=== PATIENT | male | born 1940 | race Caucasian/White ===

== ENCOUNTER 2023-05-21 07:08 | Emergency (ER) | payer MEDICARE, MEDICAID, SELFPAY ==
[2023-05-21] VITALS (26 sets, daily range): BP systolic 122–173; BP diastolic 74–91; PULSE 76–99; RESP 12–22; TEMP 36.6; O2SAT 91–98; BMI 27.1
--- NOTE | 2023-05-21 07:17 | ECG_ITS ---
The [facility] Test Date: 2023-05-21 Pat Name: CRISTA ROA Department: Room: - Gender: Male Lead Cashier: : 1940 Requested By: Order Number: [id number] Reading MD: GEORGIE GOODSON Measurements Intervals [place] Rate: 81 P: 69 MS: 226 QRS: 55 QRSD: 90 T: 66 QT: 390 QTc: 427 Interpretive Statements 1100 Sinus rhythm 1574 with frequent ventricular premature complexes 2231 First degree AV block 2420 RSR (QR) in lead V1/V2, consistent with right ventricular conduction delay 9150 abnormal ECG No previous ECG available for comparison Electronically Signed On 05-25-2023 6:57:30 EST by GEORGIE GOODSON
--- NOTE | 2023-05-21 07:33 | CT_ITS ---
The [address] [address] Patient Name: CRISTA ROA MRN: [id number] date: 1940 Sex: M Assigned Patient Location: ER Current Patient Location: ED.MAIN Accession/Order Number: [id number] Exam Date: 05/21/2023 07:55 Report Date: 05/21/2023 08:32 At the request of: MICHELE BACON Procedure: CT head/brain wo con HEAD CT WITHOUT CONTRAST: 05/21/2023 7:55 AM EDT Clinical Data: ams Comparison: No previous Unenhanced axial data from base to vertex. INTRA-AXIAL: No acute hemorrhage. No acute infarction is evident. EXTRA-AXIAL: No acute hemorrhage. No focal fluid collection. BRAIN VOLUME: Unremarkable for age. VENTRICLES: No hydrocephalus PARANASAL SINUSES: No air-fluid levels in the included aspects. MASTOIDS: Clear. CALVARIUM: No acute finding. EXTRACALVARIAL: No acute findings CT/CT head/brain wo con IMPRESSION: 1. No evidence of acute intracranial process on this unenhanced study as described. All CT scans at this facility use dose modulation, iterative reconstruction, and/or weight based dosing when appropriate to reduce radiation dose to as low as reasonably achievable. Electronically authenticated by: GREG PARADA Date: 05/21/2023 08:32
[2023-05-21 07:38] LABS: Basophils Percent Auto 0.4 % (0.2-2.0); Eosinophils Absolute Auto 0.2 10^3/uL (0.0-0.7); Eosinophils Percent Auto 2.1 % (0.9-7.0); Hematocrit 31.3 % (42.0-54.0); Hemoglobin 10.1 g/dL (14.0-18.0); Immature Granulocytes Abs Auto 0.02 10^3/uL (0.00-0.03); Immature Granulocytes Pct Auto 0.2 % (0.0-0.5); Lymphocytes Percent Auto 11.6 % (20.5-60.0); Mean Corpuscular HGB Conc 32.3 g/dL (29.9-35.2); Mean Corpuscular Hemoglobin 32.7 pg (25.9-34.0); Mean Corpuscular Volume 101.3 fL (80.0-94.0); Mean Platelet Volume 10.1 fL (9.5-13.5); Monocytes Absolute Auto 0.8 10^3/uL (0.3-0.8); Monocytes Percent Auto 9.2 % (1.7-12.0); Neutrophils Absolute Auto 6.9 10^3/uL (1.4-6.5); Neutrophils Percent Auto 76.5 % (43.0-75.0); Platelet Count 231 10^3/uL (150-450); Red Blood Count 3.09 10^6/uL (4.70-6.10); Red Cell Distribution Width 12.4 % (11.0-15.0)
[2023-05-21 07:50] LABS: Alanine Aminotransferase 37 U/L (16-63); Albumin Globulin Ratio 0.8; Albumin Level 2.8 g/dL (3.4-5.0); Alkaline Phosphatase 172 U/L (46-116); Anion Gap 15.8; Aspartate Amino Transferase 36 U/L (15-37); BUN Creatinine Ratio 27.2; Bilirubin Total 1.6 mg/dL (0.2-1.0); Calcium 8.2 mg/dL (8.5-10.1); Carbon Dioxide 22.8 mmol/L (21.0-32.0); Chloride 110 mmol/L (98-107); Estimated GFR (African America 56 (>=60); Estimated GFR (Non-African Ame 46 (>=60); Globulin 3.5 g/dL; Glucose 87 mg/dL (74-106); Potassium 4.6 mmol/L (3.5-5.1); Sodium 144 mmol/L (136-145); Total Protein 6.3 g/dL (6.4-8.2)
[2023-05-21 07:52] LABS: Troponin I High Sensitivity 26.5 pg/mL (4.0-76.1)
[2023-05-21 07:54] LABS: INR 1.83; Prothrombin Time 18.7 sec (9.0-11.6)
--- NOTE | 2023-05-21 07:54 | ED.WEAKNESS1 ---
HPI - Weakness General Chief complaint: Weakness Stated complaint: GENERAL WEAKNESS Time Seen by Provider: 05/21/23 07:15 Mode of arrival: ambulance History of Present Illness HPI Narrative: The patient is coming to us from assisted living with a complaint of generalized weakness for the last week , there was no specific abdominal pain or chest pain The patient have history of congestive heart failure as well as A-fib and CKD stage III and hypertension as well as anxiety and diabetes type 2 Upon arrival the patient have no acute complaint he does have a history of recent fracture to his right humerus mostly the proximal aspect of it And it seemed that the patient was just evaluated 2 days ago in [facility] for general weakness which seem that the work-up as well was negative the patient himself denies any complaint at the moment Related Data Allergies Allergy/AdvReac Type Severity Reaction Status Date / Time No Known Drug Allergies Allergy Verified 05/21/23 07:13 Review of Systems ROS Status of ROS 10 or more systems reviewed and unremarkable except as noted in history and below Exam Narrative Exam Narrative: Nurses notes and vital signs reviewed and patient is not hypoxic. General: Well-appearing and in no apparent distress. Skin: Warm, dry, no pallor noted. No rash. Head: Normocephalic, atraumatic. Neck: Supple, non-tender. Eye: Pupils are equal, round and EOMI. No scleral icterus. Ears, Nose, Mouth, and Throat: TM are clear, no nasal mucosal hypertrophy. Oral mucosa is very dry., no posterior oropharynx erythema, uvula is mid-line Cardiovascular: Regular Rate and Rhythm without murmur, gallop or rub. Respiratory: No accessory muscle use or respiratory distress. Lungs are clear to auscultation, no wheezing, rales or rhonchi Chest Wall: no tenderness Back: No midline thoracic or lumbar vertebral tenderness. 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 Normal bowel sounds. No masses appreciated. No tenderness to palpation. Scar of previous PEG tube Neurological: A&O x4. No cranial nerve dysfunction observed. No truncal ataxia. Moves all extremities. Sensation intact. Psychiatric: Cooperative and interactive. Normal mood and affect. Constitutional Vital Signs, click to edit/add: Last Vital Signs Temp 97.8 F 05/21/23 07:10 Pulse 80 05/21/23 10:10 Resp 13 05/21/23 10:10 BP 142/87 H 05/21/23 10:00 Pulse Ox 91 L 05/21/23 10:00 O2 Del Method Room Air 05/21/23 09:08 Course Vital Signs Vital signs: Vital Signs Temperature 97.8 F 05/21/23 07:10 Pulse Rate 80 05/21/23 07:10 Respiratory Rate 16 05/21/23 07:10 Blood Pressure 144/74 H 05/21/23 07:10 Pulse Oximetry 98 05/21/23 07:10 Oxygen Delivery Method Room Air 05/21/23 07:10 Temperature 97.8 F 05/21/23 07:10 Pulse Rate 80 05/21/23 10:10 Respiratory Rate 13 05/21/23 10:10 Blood Pressure 142/87 H 05/21/23 10:00 Pulse Oximetry 91 L 05/21/23 10:00 Oxygen Delivery Method Room Air 05/21/23 09:08 MDM - Weakness MDM Narrative Medical decision making narrative: The patient EKG showing sinus rhythm with a heart rate of [address] elevation or depression few PVCs The patient CBC and chemistry showed no acute significant pathology it was noted that the patient have a very dry oral mucosa and that could be interfering with his speech as well although he does not have any dysarthria Patient CBC chemistry showed no acute significant pathology as well as the magnesium was 2.3 patient was able to ambulate no difficulty no acute complaint and right now he was to be discharged back to his shelter facility It was noted that the patient is using the [place] as well as tramadol for his pain management and that could be the reason for the generalized weakness that he is having as a side effect of the medication as the patient said that the tramadol was not effective and would stop the tramadol and limit the patient use during the day to Tylenol and [place] and the use of [place] at night in case needed before going to sleep Keep cautious of Tylenol amount he is receiving The patient is to follow up with primary care physician in next 2-3 days or to return to the emergency department should any of the signs or symptoms worsen or new symptoms develop. The patient agrees with the following Diagnosis and Treatment plan and the patient will be discharged home. Lab Data Labs: Lab Results 05/21/23 05/21/23 Range/Units 07:26 08:12 WBC 9.0 (4.0-11.0) 10^3/uL RBC 3.09 L (4.70-6.10) 10^6/uL Hgb 10.1 L (14.0-18.0) g/dL Hct 31.3 L (42.0-54.0) % MCV 101.3 H (80.0-94.0) fL MCH 32.7 (25.9-34.0) pg MCHC 32.3 (29.9-35.2) g/dL RDW 12.4 (11.0-15.0) % Plt Count 231 (150-450) 10^3/uL MPV 10.1 (9.5-13.5) fL Neut % (Auto) 76.5 H (43.0-75.0) % Lymph % (Auto) 11.6 L (20.5-60.0) % [place] % (Auto) 9.2 (1.7-12.0) % Eos % (Auto) 2.1 (0.9-7.0) % Baso % (Auto) 0.4 (0.2-2.0) % Neut # (Auto) 6.9 H (1.4-6.5) 10^3/uL Lymph # (Auto) 1.0 L (1.2-3.8) 10^3/uL [place] # (Auto) 0.8 (0.3-0.8) 10^3/uL Eos # (Auto) 0.2 (0.0-0.7) 10^3/uL Baso # (Auto) 0.0 (0.0-0.1) 10^3/uL Abs Immat Gran (auto) 0.02 (0.00-0.03) 10^3/uL Imm/Tot Granulo (auto) 0.2 (0.0-0.5) % PT 18.7 H (9.0-11.6) sec INR 1.83 Sodium 144 (136-145) mmol/L Potassium 4.6 (3.5-5.1) mmol/L Chloride 110 H (98-107) mmol/L Carbon Dioxide 22.8 (21.0-32.0) mmol/L Anion Gap 15.8 BUN 40.0 H (7.0-18.0) mg/dL Creatinine 1.47 H (0.70-1.30) mg/dL Est GFR ( Amer) 56 L (>=60) Est GFR (Non-Af Amer) 46 L (>=60) BUN/Creatinine Ratio 27.2 Glucose 87 (74-106) mg/dL Lactate 1.0 (0.4-2.0) mmol/L Calcium 8.2 L (8.5-10.1) mg/dL Magnesium (1.8-2.4) mg/dL Total Bilirubin 1.6 H (0.2-1.0) mg/dL AST 36 (15-37) U/L ALT 37 (16-63) U/L Alkaline Phosphatase 172 H (46-116) U/L Troponin I High Sens 26.5 (4.0-76.1) pg/mL Total Protein 6.3 L (6.4-8.2) g/dL Albumin 2.8 L (3.4-5.0) g/dL Globulin 3.5 g/dL Albumin/Globulin Ratio 0.8 Urine Color Lt. yellow (YELLOW) Urine Clarity Clear (CLEAR) Urine pH 7.0 (5.0-9.0) Ur Specific [place] 1.015 (1.005-1.025) Urine Protein Negative (NEG/TRACE) mg/dL Urine Glucose (UA) Negative (NEGATIVE) mg/dL Urine Ketones 15 A (NEGATIVE) mg/dL Urine Occult Blood Negative (NEGATIVE) Urine Nitrite Negative (NEGATIVE) Urine Bilirubin Negative (NEGATIVE) Urine Urobilinogen 1.0 (0.2-1.0) EU/dL Ur Leukocyte Esterase Negative (NEGATIVE) Discharge Plan Discharge Chief Complaint: Weakness Clinical Impression: Generalized muscle weakness Patient Disposition: Home, Self-Care Time of Disposition Decision: 10:35 Condition: Good Instructions: Weakness (ED) Stand Alone Forms: Portal Instructions Referrals: Physician,Non-Staff, MD [Primary Care Provider] - 1 week
[2023-05-21 08:21] LABS: Bilirubin Urine NEGATIVE (NEGATIVE); Blood Urine NEGATIVE (NEGATIVE); Clarity Urine CLEAR (CLEAR); Color Urine LT. YELLOW (YELLOW); Glucose Urine UA NEGATIVE (NEGATIVE); Ketones Urine 15 mg/dL (NEGATIVE); Leukocyte Esterase Urine NEGATIVE (NEGATIVE); Nitrite Urine NEGATIVE (NEGATIVE); Protein Urine NEGATIVE (NEG/TRACE); Specific Gravity Urine 1.015 (1.005-1.025)
[2023-05-21 08:23] LABS: Urine Microscopic Indicated NO
== END 2023-05-21 12:18 | disposition home or self-care (01) ==
PROVIDERS: Emergency Provider Emergency Medicine
DX: M62.81 Muscle weakness (generalized) (principal); I48.91 Unspecified atrial fibrillation; N18.30 Chronic kidney disease, stage 3 unspecified; F41.9 Anxiety disorder, unspecified; E11.22 Type 2 diabetes mellitus with diabetic chronic kidney disease; I13.0 Hypertensive heart and chronic kidney disease with heart failure and stage 1 through stage 4 chronic kidney disease, or unspecified chronic kidney disease; I50.9 Heart failure, unspecified; Z87.81 Personal history of (healed) traumatic fracture
CPT/HCPCS: 36415; 70450; 80053; 81003; 83605; 83735; 84484; 85025; 85610; 93005; 99285

== ENCOUNTER 2023-12-26 01:46 | Outpatient (OUT) | payer MEDICARE, MEDICAID, SELFPAY ==
[2023-12-26 07:59] LABS: Basophils Percent Auto 0.4 % (0.2-2.0); Eosinophils Absolute Auto 0.1 10^3/uL (0.0-0.7); Eosinophils Percent Auto 1.8 % (0.9-7.0); Hematocrit 36.9 % (42.0-54.0); Immature Granulocytes Abs Auto 0.01 10^3/uL (0.00-0.03); Immature Granulocytes Pct Auto 0.2 % (0.0-0.5); Lymphocytes Absolute Auto 1.5 10^3/uL (1.2-3.8); Lymphocytes Percent Auto 27.7 % (20.5-60.0); Mean Corpuscular HGB Conc 32.5 g/dL (29.9-35.2); Mean Corpuscular Hemoglobin 31.7 pg (25.9-34.0); Mean Corpuscular Volume 97.6 fL (80.0-94.0); Monocytes Absolute Auto 0.4 10^3/uL (0.3-0.8); Monocytes Percent Auto 7.9 % (1.7-12.0); Neutrophils Absolute Auto 3.4 10^3/uL (1.4-6.5); Platelet Count 164 10^3/uL (150-450); Red Blood Count 3.78 10^6/uL (4.70-6.10); Red Cell Distribution Width 12.3 % (11.0-15.0); White Blood Count 5.5 10^3/uL (4.0-11.0)
[2023-12-26 08:42] LABS: Anion Gap 12.7; Calcium 8.8 mg/dL (8.5-10.1); Carbon Dioxide 25.2 mmol/L (21.0-32.0); Chloride 110 mmol/L (98-107); Estimated GFR (African America 60 (>=60); Estimated GFR (Non-African Ame 49 (>=60); Glucose 80 mg/dL (74-106); Magnesium 2.2 mg/dL (1.8-2.4); Potassium 4.9 mmol/L (3.5-5.1); Sodium 143 mmol/L (136-145)
== END 2023-12-26 01:47 | disposition home or self-care (01) ==
LOC: LAB 02-03 09:35
PROVIDERS: Visit Provider Nurse Practitioner Adult Health
DX: E11.22 Type 2 diabetes mellitus with diabetic chronic kidney disease (principal); N18.2 Chronic kidney disease, stage 2 (mild); E83.42 Hypomagnesemia
CPT/HCPCS: 36415; 80048; 82607; 83735; 85025